=== PATIENT | female | born 1995 | race Caucasian/White ===

== ENCOUNTER 2020-02-07 12:58 | Outpatient (REF) | payer OTHER, SELFPAY | END 2020-02-07 12:59 | disposition home or self-care (01) | LOC: HO.HMGCLDS 12:58 | PROVIDERS: PCP Family Medicine; Visit Provider Internal Medicine | DX: Z20.828 Contact with and (suspected) exposure to other viral communicable diseases (principal) | CPT/HCPCS: 87635 ==